=== PATIENT | female | born 1990 | race Caucasian/White ===

== ENCOUNTER 2021-08-09 21:01 | Emergency (ER) | payer OTHER ==
[2021-08-09] MEDS ORDERED: BACTRIM DS TAB1 EACH PO (23:51)
[2021-08-09] MEDS ORDERED: ZOFRAN ODT 4 MG4 MG GT (23:51)
== END 2021-08-10 00:11 | disposition home or self-care (01) ==
LOC: ER1 21:01
DX: R21 Rash and other nonspecific skin eruption (principal)
CPT/HCPCS: 87070; 87205; 99283